=== PATIENT | male | born 2000 | race Two or more races ===

== ENCOUNTER 2024-09-01 02:42 | Inpatient (IN) | payer SELFPAY ==
[~2024-09-01] VITALS: Ht 172.7 cm; Wt 85.9 kg
[2024-09-01] MEDS: ONDANSETRON HCL 4 MG/2 ML VIAL IV ONE (03:45)
[2024-09-01] MEDS: SODIUM CHLORIDE 0.9% 1,000 ML IV ONE (03:45)
[2024-09-01] MEDS: MORPHINE SULFATE 4 MG/ML SYR/VIAL IV ONE (03:45)
--- NOTE | 2024-09-01 03:45 | ED.PDOC ---
GI ASSESSMENT HPI Comments around 8pm, pt developed right mid/lower abdominal pain. no constipation, no diarrhea, no nausea or vomiting. Chief Complaint: Abdominal Pain Time Seen by MD: 02:53 Allergies: Coded Allergies: NO KNOWN ALLERGIES (Unverified , 09/01/24) Information Source: Patient Mode of Arrival: Ambulatory Duration: Since onset Quality: Aching Vomitus: None Stool: Normal Severity: Mild Recent: None Recent Hx of: None Pain Location: RLQ (right mid to lower abdominal) Modifying Factors: Nothing Associated sign and symptoms: None Past Medical History PAST MEDICAL HISTORY: Denies Surgical History: Denies all surgeries Family History Family History: Reviewed,noncontributory to illness, No family hx of Cancer, No family hx of DM, No family hx of Heart paradise, No family hx of HTN, No family hx ofKidney paradise, No family hx of Liver paradise, No family hx of Lung paradise, No family hx of Stroke Social History Smoker: Non-Smoker Alcohol: Denies ETOH Use Drugs: Denies Drug Use Constitutional: denies: chills, diaphoresis, fatigue, fever, malaise, sweats, weakness, others EENTM: denies: blurred vision, double vision, ear bleeding, ear discharge, ear drainage, ear pain, ear ringing, eye pain, eye redness, hearing loss, mouth p ain, mouth swelling, nasal discharge, nose bleeding, nose congestion, nose pain, photophobia, tearing, throat pain, throat swelling, voice changes, others Respiratory: denies: cough, hemoptysis, orthopnea, SOB at rest, shortness of br eath, SOB with excertion, stridor, wheezing, others Cardiovascular: denies: chest pain, dizzy spells, diaphoresis, Dyspnea on exertion, edema, irregular heart beat, left arm pain, lightheadedness, palpitations, PND, syncope, others Gastrointestinal: reports: abdominal pain Genitourinary: denies: burning, dysuria, flank pain, frequency, hematuria, incontinence, penile discharge, penile sore, pain, testicle pain, testicle swelling, urgency, others Neurological: denies: dizziness, fainting, headache, left sided numbness, left sided weakness, numbness, paresthesia, pre-existing deficit, right sided numbness, right sided weakness, seizure, speech problems, tingling, tremors, w eakness, others Musculoskeletal: denies: back pain, gout, joint pain, joint swelling, muscle pain, muscle stiffness, neck pain, others Integumetry: denies: bruises, change in color, change in hair/nails, dryness, laceration, lesions, lumps, rash, wounds, others Allergic/Immunocompromised: denies: Difficulty Healing, Frequent Infections, Hives, Itching, others Hematologic/Lymphatic: denies: anemia, blood clots, easy bleeding, easy bruising, swollen glands, others Endocrine: denies: excessive hunger, excessive sweating, excessive thirst, excessive urination, flushing, intolerance to cold, intolerance to heat, unexplained weight gain, unexplained weight loss, others Psychiatric: denies: anxiety, bipolar disorder, depression, hopeless, panic disorder, schizophrenia, sleepless, suicidal, others All Other Systems: Reviewed and Negative Physical Exam General Appearance: No Apparent Distress, Normal HEENT: Normal ENT Inspection, Pharynx Normal, TMs Normal Neck: Full Range of Motion, Non-Tender, Normal, Normal Inspection Respiratory: Chest Non-Tender, Lungs Clear, No Accessory Muscle Use, No Respiratory Distress, Normal Breath Sounds Cardiovascular: No Edema, No JVD, No Murmur, No Gallop, Normal Peripheral Pulses, Regular Rate/Rhythm Breast Exam: Deferred Gastrointestinal: No Organomegaly, No Pulsatile Mass, Normal Bowel Sounds, RLQ, Soft, Tenderness Genitalia: Deferred Pelvic: Deferred Rectal: Deferred Extremities: No calf tenderness, Normal capillary refill, Normal inspection, Normal range of motion, Non-tender, No pedal edema Musculoskeletal : Apperance: Normal Neurologic: Alert, synthetic resin operator II-XII nml as Tested, No Motor Deficits, Normal Affect, Normal Mood, No Sensory Deficits Cerebellar Function: Normal Reflexes: Normal Skin: Dry, Normal Color, Warm Lymphatic: No Adenopathy Was a procedure done? Was a procedure done?: No GI differential Dx Differential Diagnosis: Appendicitis, Bowel Obstruction, Constipation, Diverticular disease, Gastritis/PUD, Gastroenteritis, Hernia, Inflammatory BD, Urinary Obstruction, UTI, Urolithiasis, Food Poisoning, Bacterial, Parasitic, Viral, Impaction, Kidney Stone, Other (viscus perforation, appendicities with perforation, abscess peritonitis, sbo) X-Ray, Labs, Meds, VS Vital Signs Date Time Temp Pulse Resp B/P (MAP) Pulse Ox O2 Delivery O2 Flow Rate FiO2 09/01/24 03:10 98.5 104 16 148/89 (108) 98 Lab Test 09/01/24 04:00 Range/Units White Blood Count Pending Red Blood Count Pending Hemoglobin Pending Hematocrit Pending Mean Corpuscular Volume Pending Mean Corpuscular Hemoglobin Pending Mean Corpuscular Hemoglobin Concent Pending Red Cell Distribution Width Pending Platelet Count Pending Mean Platelet Volume Pending Neutrophils (%) (Auto) Pending Lymphocytes (%) (Auto) Pending Monocytes (%) (Auto) Pending Basophils (%) (Auto) Pending Neutrophils # (Auto) Pending Lymphocytes # (Auto) Pending Monocytes # (Auto) Pending Sodium Level Pending Potassium Level Pending Chloride Level Pending Carbon Dioxide Level Pending Anion Gap Pending Blood Urea Nitrogen Pending Creatinine Pending Glomerular Filtration Rate Calc Pending BUN/Creatinine Ratio Pending Serum Glucose Pending Calcium Level Pending Time of 1ST Reevaluation: 04:23 Reevaluation 1ST: Improved Patient Education/Counseling: Diagnosis, Treatment, Prognosis, Need For Follow Up, Other Family Education/Counseling: No Family Present Additional Information i ordered cbc, chemistry, ct, urine and reviewed the results i reviewed and agree with radiology regarding the CT i spoke to school plant consultant about the result and plan pt has acute appendicitis and will need to be admitted with surgery consult. i have ordered antibiotic and pain control. pt is feeling improved Departure 1 Departure Time of Disposition: 04:25 Impression: Primary Impression: Acute appendicitis Qualified Codes: K35.30 - Acute appendicitis with localized peritonitis, without perforation or gangrene Disposition: ADMITTED INPATIENT Admit to: Med Surg Condition: Stable Discharged With: Self Critical Care Note Critical Care Time?: Yes (45 min-critical care time only) Critical care comment: due to concerns for deterioration of pt's condition, his care required my hi ghest level of attention and readiness to interview. i assessed the pt, ordered the proper tests and treatments, communicated with medical personnel, reassessed him for response, formulated a plan. the critical care time does not includin any procedures Stability Stability form required: JHONATHAN Mcbride MD Sep 01, 2024 03:45
--- NOTE | 2024-09-01 04:06 | DVH ---
Exam: CT CT AB PEL WO CON-NO ORAL OR IV History: rlq pain Comparison Study: None available at time of dictation. Technique: Multidetector spiral CT of the abdomen and pelvis was performed from lung bases to pubic s ymphysis. Imaging was performed without intravenous contrast. Coronal and sagittal multiplanar refor mats were obtained from the axial data set by the technologist. Radiation Dose : 1. Abdomen/Pelvis: CTDIvol 7.0 mGy, DLP 404.12 mGy*cm. Findings: Mental Evaluation of vasculature and solid organs is limited due to lack of intravenous contrast use. Lung Bases: Lung bases are clear. Visualized portions of the heart and pericardium are unremarkable. Liver: The liver is normal in size. No focal lesions. Gallbladder and Biliary Tree: The gallbladder is unremarkable. No intrahepatic or extrahepatic bili jenae ductal dilatation. Spleen: Unremarkable Pancreas: The pancreas is grossly unremarkable. Adrenal Glands: Unremarkable Kidneys: Kidneys are unremarkable without calculi or hydronephrosis. GI tract: The stomach is grossly normal in appearance. No evidence of small bowel wall thickening or abnormal dilatation to suggest bowel obstruction. The colon is unremarkable. The appendix is dilate d measuring 1.3 cm in diameter with surrounding fat stranding indicating inflammatory changes. There is 5 mm appendicolith at the base of the appendix and another 5 mm appendicolith near the tip. Peritoneum/mesentery/retroperitoneum. No evidence of free intraperitoneal air. No ascites. Increased number of right lower quadrant lymph nodes measuring up to 7 mm which are likely reactive. Abdominal Wall: Unremarkable. Vasculature: The visualized abdominal aorta is normal in size and caliber. Evaluation of abdominal a nd pelvic vessels is limited due to lack of intravenous contrast. Urinary Bladder: Grossly unremarkable for degree of distention. Pelvic Organs: Unremarkable Musculoskeletal: No aggressive focal bony lesions, acute fractures or dislocation. IMPRESSION: 1. Acute uncomplicated appendicitis. 2. Reactive lymph nodes in the right lower quadrant.
[2024-09-01 04:21] LABS: Basophils # (auto) 0 10 ^3/uL (0-0.2); Basophils % (auto) 0.2 % (0.0-2.0); Eosinophils # (auto) 0.1 10 ^3/uL (0-0.8); Eosinophils % (auto) 0.3 % (0.0-7.0); Hematocrit 45.7 % (41.0-53.0); Hemoglobin 15.3 g/dL (13.5-17.5); Lymphocytes # (auto) 2.8 10 ^3/uL (0.4-5.4); Lymphocytes % (auto) 15.4 % (10.0-50.0); Mean Corpuscular Hemoglobin 28.8 pg (28.0-32.0); Mean Corpuscular Hgb Conc. 33.5 g/dL (32.0-36.0); Mean Corpuscular Volume 86.1 fL (80.0-100.0); Monocytes % (auto) 5.3 % (0.0-12.0); Neutrophils # (auto) 14.3 10 ^3/uL (1.6-8.6); Neutrophils % (auto) 78.8 % (37.0-80.0); Nucleated Red Blood Cells % 0.1 %; Platelet Count (auto) 250 10^3/uL (140-450); Red Blood Cells 5.31 10^6/uL (4.5-5.90); Red Cell Distribution Width 13.5 % (11.8-14.3); White Blood Cell 18.1 10^3/uL (4.4-10.8)
[2024-09-01 04:32] LABS: Chloride 105 mmol/L (98-107); Potassium 3.8 mmol/L (3.5-5.1); Sodium 141 mmol/L (136-145)
[2024-09-01 04:33] LABS: Anion Gap 11 (5-15); Calcium 9.9 mg/dL (8.7-10.4); Carbon Dioxide 25 mmol/L (20-31)
[2024-09-01 04:38] LABS: BUN/Creatinine Ratio 8.9 (10.0-20.0); Blood Urea Nitrogen 9 mg/dL (9-23)
[2024-09-01 04:47] LABS: Glucose 115 mg/dL (74-106)
[2024-09-01] MEDS: SODIUM CHLORIDE 0.9% 1,000 ML IV SCH (05:15)
[2024-09-01] MEDS ORDERED: ONDANSETRON HCL 4 MG/2 ML VIAL IV PRN (05:15)
[2024-09-01] MEDS ORDERED: MORPHINE SULFATE INJ 2 MG/ml SYRG IV PRN (05:15)
--- NOTE | 2024-09-01 05:28 | DVH ---
CHEST RADIOGRAPH Indication: Preop Technique: Single frontal view of the chest was obtained Comparison: None FINDINGS: Lines and Tubes: None Lungs: No focal consolidation. Pleura: No effusion. No pneumothorax. Cardiomediastinal contours: Unremarkable Bones: No acute osseous abnormality. IMPRESSION: 1. No acute cardiopulmonary disease.
[2024-09-01 05:30] LABS: INR 0.98 (0.9-1.15); Partial Thromboplastin Time 25.6 SEC (24.5-34.5); Prothrombin Time 10.4 sec (9.3-11.8)
--- NOTE | 2024-09-01 05:34 | DVHHP2 ---
History of Present Illness Reason for Visit: Abdominal pain History of Present Illness 24-year-old male presents for evaluation of abdominal pain. Patient endorses a one day history of sharp right lower quadrant abdominal pain. Denies nausea or vomiting. No fever or chills. No other acute complaints reported. Past Medical History Denies Past Surgical History Denies Family History Noncontributory Smoke: No ALCOHOL: none Drugs: None Lives: with Family Review of Systems Review of Systems Review of systems are currently negative otherwise addressed in HPI. Allergies: Coded Allergies: NO KNOWN ALLERGIES (Unverified , 09/01/24) Medications Current Medications Medications Dose Ordered Sig/[place] Route Start Time Stop Time Status Last Admin Dose Admin Piperacillin Sod/ Tazobactam Sod 100 ml @ 25 mls/hr Q6HR IV 09/01/24 06:00 Sodium Chloride 1,000 ml @ 80 mls/hr [id number] IV 09/01/24 05:15 Ondansetron HCl 4 mg Q4HP PRN IV 09/01/24 05:15 Morphine Sulfate 2 mg Q4HPRN PRN IV 09/01/24 05:15 Exam Vital Signs Vital Signs Date Time Temp Pulse Resp B/P (MAP) Pulse Ox O2 Delivery O2 Flow Rate FiO2 09/01/24 03:10 98.5 104 16 148/89 (108) 98 Exam Gen: 24-year-old male in mild distress Skin: Warm, dry, normal color and texture, no rash. HEENT: Normocephalic atraumatic, mucous membranes moist and pink. Neck: Cervical and supraclavicular nodes normal without enlargement, trachea is midline, thyroid gland is normal without masses. Pulmonary: Clear to auscultation and percussion bilaterally. Cardiac: Regular rate and rhythm. No murmur Abdomen: Soft, right lower quadrant sharp pain, nondistended, bowel sounds present all 4 quadrants, no guarding, no rigidity, no organomegaly. Extremities: No cyanosis, clubbing, no edema Neuro: Cranial nerves II through XII grossly intact, normal affect and speech, no focal motor deficits. Labs/Xrays ORDERING PHYSICIAN: JHONATHAN LARSON MD PROCEDURE(s): ABPL - CT AB PEL WO CON-NO ORAL OR IV REASON: rlq pain ORDER NUMBER(s): [id number], ACCESSION NUMBER(s): [id number] Exam: CT CT AB PEL WO CON-NO ORAL OR IV History: rlq pain Comparison Study: None available at time of dictation. Technique: Multidetector spiral CT of the abdomen and pelvis was performed from lung bases to pubic symphysis. Imaging was performed without intravenous contrast. Coronal and sagittal multiplanar reformats were obtained from the axial data set by the technologist. Radiation Dose : 1. Abdomen/Pelvis: CTDIvol 7.0 mGy, DLP 404.12 mGy*cm. Findings: Mental Evaluation of vasculature and solid organs is limited due to lack of intravenous contrast use. Lung Bases: Lung bases are clear. Visualized portions of the heart and pericardium are unremarkable. Liver: The liver is normal in size. No focal lesions. Gallbladder and Biliary Tree: The gallbladder is unremarkable. No intrahepatic or extrahepatic biliary ductal dilatation. Spleen: Unremarkable Pancreas: The pancreas is grossly unremarkable. Adrenal Glands: Unremarkable Kidneys: Kidneys are unremarkable without calculi or hydronephrosis. GI tract: The stomach is grossly normal in appearance. No evidence of small bowel wall thickening or abnormal dilatation to suggest bowel obstruction. The colon is unremarkable. The appendix is dilated measuring 1.3 cm in diameter with surrounding fat stranding indicating inflammatory changes. There is 5 mm appendicolith at the base of the appendix and another 5 mm appendicolith near the tip. Peritoneum/mesentery/retroperitoneum. No evidence of free intraperitoneal air. No ascites. Increased number of right lower quadrant lymph nodes measuring up to 7 mm which are likely reactive. Abdominal Wall: Unremarkable. Vasculature: The visualized abdominal aorta is normal in size and caliber. Evaluation of abdominal and pelvic vessels is limited due to lack of intravenous contrast. Urinary Bladder: Grossly unremarkable for degree of distention. Pelvic Organs: Unremarkable Musculoskeletal: No aggressive focal bony lesions, acute fractures or dislocation. IMPRESSION: 1. Acute uncomplicated appendicitis. 2. Reactive lymph nodes in the right lower quadrant. Labs Test 09/01/24 04:00 Range/Units White Blood Count 18.1 H 4.4-10.8 10^3/uL Red Blood Count 5.31 4.5-5.90 10^6/uL Hemoglobin 15.3 13.5-17.5 g/dL Hematocrit 45.7 41.0-53.0 % Mean Corpuscular Volume 86.1 80.0-100.0 fL Mean Corpuscular Hemoglobin 28.8 28.0-32.0 pg Mean Corpuscular Hemoglobin Concent 33.5 32.0-36.0 g/dL Red Cell Distribution Width 13.5 11.8-14.3 % Platelet Count 250 140-450 10^3/uL Mean Platelet Volume 8.8 6.9-10.8 fL Neutrophils (%) (Auto) 78.8 37.0-80.0 % Lymphocytes (%) (Auto) 15.4 10.0-50.0 % Monocytes (%) (Auto) 5.3 0.0-12.0 % Eosinophils (%) (Auto) 0.3 0.0-7.0 % Basophils (%) (Auto) 0.2 0.0-2.0 % Neutrophils # (Auto) 14.3 H 1.6-8.6 10 ^3/uL Lymphocytes # (Auto) 2.8 0.4-5.4 10 ^3/uL Monocytes # (Auto) 1.0 0-1.3 10 ^3/uL Eosinophils # (Auto) 0.1 0-0.8 10 ^3/uL Basophils # (Auto) 0 0-0.2 10 ^3/uL Nucleated Red Blood Cells 0.1 % Sodium Level 141 136-145 mmol/L Potassium Level 3.8 3.5-5.1 mmol/L Chloride Level 105 98-107 mmol/L Carbon Dioxide Level 25 20-31 mmol/L Anion Gap 11 5-15 Blood Urea Nitrogen 9 9-23 mg/dL Creatinine 1.01 0.700-1.30 mg/dL Glomerular Filtration Rate Calc 107 >90 mL/min BUN/Creatinine Ratio 8.9 L 10.0-20.0 Serum Glucose 115 H 74-106 mg/dL Calcium Level 9.9 8.7-10.4 mg/dL Assessment/Plan Assessment/Plan Assessment Acute appendicitis Acute abdominal pain Leukocytosis Plan Admit the patient to [facility] [place] to the hospitalist Surgical consultation Zosyn Maintenance IV fluids Pain management Continue treatment per orders. Plan discussed with: Patient My Orders Orders - MCKEONDASHYANET AGACNP Procedure Category Date Status Time Piperacillin-Tazob PHA 09/01/24 In Process 3.375gm (Zosyn 3.375g 06:00 Sodium Chloride 0.9% PHA 09/01/24 In Process 05:15 Chest Xray 1 View XY 09/01/24 Resulted 05:01 PTPTT LAB 09/01/24 In Process 05:01 Type And Screen BBK 09/01/24 Logged 05:01 Basic Metabolic Panel LAB 09/02/24 Verified 04:00 Admit ADMIT 09/01/24 Transmitted 05:01 Ondansetron Hcl PHA 09/01/24 In Process (Zofran) 05:15 Complete Blood Count LAB 09/02/24 Verified 04:00 Npo (Nothing By DIET 09/01/24 Transmitted Mouth) Diet Breakfast Condition: Stable DARLENE 09/01/24 In Process 05:01 Bedrest With Bathroom DARLENE 09/01/24 In Process Privileg 05:01 Morphine Sulfate PHA 09/01/24 In Process Injection 05:15 Date of Service: Sep 01, 2024 Billing Provider: DASH MCKEON Common Visit Codes: [id number] INP/OBS CARE (HIGH) DASH MCKEON Sep 01, 2024 05:34
[2024-09-01 07:37] VITALS: BP 151/79; PULSE 99; RESP 16; TEMP 98.9; O2SAT 99
[2024-09-01] MEDS: cefTRIAXone 1GM/50ML D5W 50 ML IV ONE (07:47)
[2024-09-01] MEDS: PIPERACILLIN-TAZOB 3.375GM 100 ML IV SCH (07:47)
--- NOTE | 2024-09-01 08:35 | DVHINCON2 ---
Date of service: Sep 01, 2024 Reason for Consultation appendicitis History of Present Illness HPI 24 year old male presented to the ER with sharp right lower quadrant pain 10/10. denies nausea or vomiting. Patient states he no longer has pain. RLQ non tender. Past Medical History Cardiac: No pertinent Hx Pulmonary: No pertinent Hx Central Nervous System: No pertinent Hx GI: No pertinent Hx Hemotology/Oncology: No pertinent Hx Hepatobiliary: No pertinent Hx Psychiatric: No pertinent Hx Musculoskeletal: No pertinent Hx Rheumotologic: No pertinent Hx Infectious Disease: No peritnent Hx ENT: No pertinent Hx Renal/: No pertinent Hx Endocrine: No pertinent Hx Dermatology: No pertinent Hx Past Surgical History: No pertinent Hx Family History: No pertinent Hx Smoker: No Hx (Negative) Alocohol: Occassional Drugs: None Lives with: With family Review of Systems Constitutional: No symptom reported Ears, Nose, & Throat: No symptom reported Eyes: No symptom reported Pulmonary/Respiratory: No symptom reported Cardiovascular: No symptom reported Gastrointestinal: No symptom reported Genitourinary: No symptom reported Musculoskeletal: No symptom reported Skin: No symptom reported Psychiatric: No symptom reported Endocrine: No symptom reported Hemotologic/Lymphatic: No symptom reported H&P Exam Vital Signs Vital Signs Date Time Temp Pulse Resp B/P (MAP) Pulse Ox O2 Delivery O2 Flow Rate FiO2 09/01/24 07:39 Room Air* 0 21 09/01/24 07:37 98.9 99 16 151/79 (103) 99 98.9 General Appeara: Well developed, Well nourished, Normal Appearance Head Exam: Normal inspection Neck Exam: Normal inspection Eye Exam: bilateral eye Normal inspection Nasal Exam: Normal inspection Pulmonary/Respiratory: Normal inspection, Normal breath sounds Cardiovascular/Chest: Normal inspection, Regular rate, Normal Rhythm Abdominal Exam: Soft, No tenderness Tendon/ Neuro: Normal sensation, Normal motor function Neuro/Mental St: Alert, Oriented Appearance: Appropriate appearance Eye contact/ Speech: Cooperative, Good eye contact, Normal speech Skin Exam: Normal inspection, Normal color, Warm/dry Labs/Xrays Labs Test 09/01/24 04:00 Range/Units White Blood Count 18.1 H 4.4-10.8 10^3/uL Red Blood Count 5.31 4.5-5.90 10^6/uL Hemoglobin 15.3 13.5-17.5 g/dL Hematocrit 45.7 41.0-53.0 % Mean Corpuscular Volume 86.1 80.0-100.0 fL Mean Corpuscular Hemoglobin 28.8 28.0-32.0 pg Mean Corpuscular Hemoglobin Concent 33.5 32.0-36.0 g/dL Red Cell Distribution Width 13.5 11.8-14.3 % Platelet Count 250 140-450 10^3/uL Mean Platelet Volume 8.8 6.9-10.8 fL Neutrophils (%) (Auto) 78.8 37.0-80.0 % Lymphocytes (%) (Auto) 15.4 10.0-50.0 % Monocytes (%) (Auto) 5.3 0.0-12.0 % Eosinophils (%) (Auto) 0.3 0.0-7.0 % Basophils (%) (Auto) 0.2 0.0-2.0 % Neutrophils # (Auto) 14.3 H 1.6-8.6 10 ^3/uL Lymphocytes # (Auto) 2.8 0.4-5.4 10 ^3/uL Monocytes # (Auto) 1.0 0-1.3 10 ^3/uL Eosinophils # (Auto) 0.1 0-0.8 10 ^3/uL Basophils # (Auto) 0 0-0.2 10 ^3/uL Nucleated Red Blood Cells 0.1 % Prothrombin Time 10.4 9.3-11.8 sec Prothrombin Time INR 0.98 0.9-1.15 Activated Partial Thromboplast Time 25.6 24.5-34.5 SEC Sodium Level 141 136-145 mmol/L Potassium Level 3.8 3.5-5.1 mmol/L Chloride Level 105 98-107 mmol/L Carbon Dioxide Level 25 20-31 mmol/L Anion Gap 11 5-15 Blood Urea Nitrogen 9 9-23 mg/dL Creatinine 1.01 0.700-1.30 mg/dL Glomerular Filtration Rate Calc 107 >90 mL/min BUN/Creatinine Ratio 8.9 L 10.0-20.0 Serum Glucose 115 H 74-106 mg/dL Calcium Level 9.9 8.7-10.4 mg/dL Assessment/Plan Plan Ct and labs reviewed , WBC elevated CT : Acute uncomplicated appendicitis patient examined in hallway of ER , patient denies any abdominal pain , nausea or vomiting, abdomen soft, non tender to RLQ, patient would like to avoid surgery and would rather be treated with antibiotics at this time. patient educated on the possibility of the the pain and reoccurrence of appendicitis. Patient still denied surgery at this time No surgical intervention , please admit and treat with antibiotics will reevaluate tomorrow , Dr. Jacome agrees with plan Plan discussed with: Patient, Other (Dr. jacome) Visit Coding Surgery Date of Service if different f: Sep 01, 2024 Billing Provider: JOCY JACOME MD Surgery Visit Codes: 72153 - INP CONSULT <55 MIN ERLINDA PATE NP Sep 01, 2024 08:35
[2024-09-01] MEDS ORDERED: PIPERACILLIN-TAZOB 3.375GM 100 ML IV SCH (14:00)
== END 2024-09-01 14:49 | disposition left against medical advice (07) | DRG 395 ==
LOC: ER 02:42 → OVERFLOW 05:05
PROVIDERS: ADMIT Nurse Practitioner; ATTEND Nurse Practitioner Acute Care
DX: K35.80 Unspecified acute appendicitis (principal); D72.829 Elevated white blood cell count, unspecified; Z53.29 Procedure and treatment not carried out because of patient's decision for other reasons
CPT/HCPCS: 36415; 71045; 74176; 80048; 85025; 85610; 85730; 86850; 86900; 86901; 99291; G0378; J2543